=== PATIENT | female | born 2000 | race Caucasian/White ===

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

== ENCOUNTER 2021-02-03 07:07 | Emergency (ER) | payer OTHER ==
[~2021-02-03] VITALS: Ht 165.1 cm; Wt 118.0 kg
[2021-02-03 08:27] LABS: BASO % 1 % (0-3); EOS # 0.2 x10^3/uL (0.0-0.7); EOS % 2 % (0-3); HEMATOCRIT 38.6 % (36.0-47.0); HEMOGLOBIN 13.1 g/dL (12.0-15.5); LYMPH % 28 % (24-48); MEAN CORPUSCULAR HEMOGLOBIN 28 pg (25-35); MEAN CORPUSCULAR HGB CONC 34 g/dL (31-37); MEAN CORPUSCULAR VOLUME 81 fL (79-100); MONO # 0.4 x10^3/uL (0.0-1.1); MONO % 5 % (0-9); NEUT # 4.4 x10^3/uL (1.8-7.7); NEUT % 64 % (31-73); PLATELET COUNT 210 x10^3/uL (140-400); RED BLOOD COUNT 4.77 x10^6/uL (3.50-5.40); RED CELL DISTRIBUTION WIDTH 14.2 % (11.5-14.5); WHITE BLOOD COUNT 6.9 x10^3/uL (4.0-11.0)
[2021-02-03 08:31] LABS: BILIRUBIN,URINE NEGATIVE (NEG); CLARITY,URINE CLEAR; COLOR,URINE YELLOW; NITRITE,URINE NEGATIVE (NEG); PH,URINE 6.5 (<5.0-8.0); PROTEIN,URINE NEGATIVE (NEG-TRACE); UROBILINOGEN,URINE 0.2 mg/dL (0.2 mg/dL)
--- NOTE | 2021-02-03 08:31 | ED.ADGEN ---
Past Medical History Past Medical History: No Pertinent History Past Surgical History: No Surgical History Smoking Status: Never Smoker Alcohol Use: None Drug Use: Marijuana General Adult EDM: Chief Complaint: ABDOMINAL PAIN HPI: HPI: Patient is a 20-year-old previously healthy female who presents to the emergency room complaining of epigastric abdominal pain that radiates to her right side. This started last night and at that time was a dull pain. She is now having dull pain with intermittent sharp pains. The pain is kept her up all night. She has nausea but does not have any vomiting. She has not had any known fevers. She denies any diarrhea or constipation. She is never had pain like this previously. Nothing seems to make it better or worse. She has not tried to eat since the pain started. Review of Systems: Review of Systems: Complete ROS is negative unless otherwise documented in HPI Current Medications: Current Medications Medications (Trade) Dose Ordered Sig/Darleen Start Time Stop Time Status Last Admin Dose Admin Ketorolac Tromethamine (Toradol 30mg Vial) 30 mg 1X ONCE 02/03/21 09:15 02/03/21 09:16 DC Ondansetron HCl (Zofran) 4 mg 1X ONCE 02/03/21 08:45 02/03/21 08:46 DC 02/03/21 08:46 4 MG Allergies: Allergies: Allergies Coded Allergies Type Severity Reaction Last Updated Verified No Known Drug Allergies 07/05/16 No Physical Exam: PE: General: Awake, alert, NAD. Well Nourished, well hydrated. Cooperative HEENT: Atraumatic, EOMI, PERRL, airway patent, moist oral mucosa Neck: Supple, trachea midline Respiratory: CTA bilaterally, normal effort, no wheezing/crackles CV: RRR, no murmur, cap refill <2 GI: Soft, nondistended, right upper quadrant tenderness, no masses MSK: No obvious deformities Skin: Warm, dry, intact Neuro: A&O x3, speech NL, sensory and motor grossly intact, no focal deficits Psych: Normal affect, normal mood, not suicidal or homicidal Current Patient Data: Labs: Laboratory Tests Test 02/03/21 07:21 02/03/21 07:28 02/03/21 08:04 Urine Collection Type Unknown Urine Color Yellow Urine Clarity Clear Urine pH 6.5 (<5.0-8.0) Urine Specific [place] <=1.005 (1.000-1.030) Urine Protein Negative mg/dL (NEG-TRACE) Urine Glucose (UA) Negative mg/dL (NEG) Urine Ketones (Stick) Negative mg/dL (NEG) Urine Blood Negative (NEG) Urine Nitrite Negative (NEG) Urine Bilirubin Negative (NEG) Urine Urobilinogen Dipstick 0.2 mg/dL (0.2 mg/dL) Urine Leukocyte Esterase Trace (NEG) Urine RBC 0 /HPF (0-2) Urine WBC 1-4 /HPF (0-4) Urine Squamous Epithelial Cells Many /LPF Urine Bacteria Many /HPF (0-FEW) POC Urine HCG, Qualitative Hcg negative (Negative) White Blood Count 6.9 x10^3/uL (4.0-11.0) Red Blood Count 4.77 x10^6/uL (3.50-5.40) Hemoglobin 13.1 g/dL (12.0-15.5) Hematocrit 38.6 % (36.0-47.0) Mean Corpuscular Volume 81 fL (79-100) Mean Corpuscular Hemoglobin 28 pg (25-35) Mean Corpuscular Hemoglobin Concent 34 g/dL (31-37) Red Cell Distribution Width 14.2 % (11.5-14.5) Platelet Count 210 x10^3/uL (140-400) Neutrophils (%) (Auto) 64 % (31-73) Lymphocytes (%) (Auto) 28 % (24-48) Monocytes (%) (Auto) 5 % (0-9) Eosinophils (%) (Auto) 2 % (0-3) Basophils (%) (Auto) 1 % (0-3) Neutrophils # (Auto) 4.4 x10^3/uL (1.8-7.7) Lymphocytes # (Auto) 2.0 x10^3/uL (1.0-4.8) Monocytes # (Auto) 0.4 x10^3/uL (0.0-1.1) Eosinophils # (Auto) 0.2 x10^3/uL (0.0-0.7) Basophils # (Auto) 0.0 x10^3/uL (0.0-0.2) Sodium Level 137 mmol/L (136-145) Potassium Level 4.0 mmol/L (3.5-5.1) Chloride Level 103 mmol/L (98-107) Carbon Dioxide Level 25 mmol/L (21-32) Anion Gap 9 (6-14) Blood Urea Nitrogen 9 mg/dL (7-20) Creatinine 0.7 mg/dL (0.6-1.0) Estimated GFR (Cockcroft-Gault) 107.8 BUN/Creatinine Ratio 13 (6-20) Glucose Level 111 mg/dL (70-99) H Calcium Level 8.8 mg/dL (8.5-10.1) Total Bilirubin 0.3 mg/dL (0.2-1.0) Aspartate Amino Transferase (AST) 14 U/L (15-37) L Alanine Aminotransferase (ALT) 24 U/L (14-59) Alkaline Phosphatase 62 U/L (46-116) Total Protein 7.8 g/dL (6.4-8.2) Albumin 3.6 g/dL (3.4-5.0) Albumin/Globulin Ratio 0.9 (1.0-1.7) L Lipase 113 U/L (73-393) Laboratory Tests 02/03/21 08:04 Laboratory Tests 02/03/21 08:04 Vital Signs: Vital Signs Date Time Temp Pulse Resp B/P (MAP) Pulse Ox O2 Delivery O2 Flow Rate FiO2 02/03/21 08:48 92 20 129/59 (82) 98 Room Air 02/03/21 07:58 98.1 98.1 EKG: EKG: [] Heart Score: C/O Chest Pain: N/A Risk Factors: Risk Factors: DM, Current or recent (<one month) smoker, HTN, HLP, family history of CAD, obesity. Risk Scores: Score 0 - 3: 2.5% MACE over next 6 weeks - Discharge Home Score 4 - 6: 20.3% MACE over next 6 weeks - Admit for Clinical Observation Score 7 - 10: 72.7% MACE over next 6 weeks - Early Invasive Strategies Radiology/Procedures: Radiology/Procedures: [] Course & Med Decision Making: Course & Med Decision Making Pertinent Labs and Imaging studies reviewed. (See chart for details) Patient is a 20-year-old female who presents to the emergency room complaining of right upper quadrant abdominal pain with radiation into her back. Patient is overall well-appearing. Vitals are stable. Patient will be given symptomatic treatment. Abdominal lab work was ordered including a CMP, CBC, UA, lipase. Lab work is unremarkable. At this time ultrasound is unavailable due to no noc technician coverage here in our hospital. Unable to get an ultrasound this morning. At this time given patient's normal white blood cell count, liver enzymes, lipase there is more risk than benefit to getting a CT scan at this time. I did discuss with her the signs of acute cholecystitis and when to return to the emergency room. Patient's test results and vitals while in the ED were fully reviewed and discussed with the patient. Patient is stable and at this time does not need admission to the hospital. We have discussed strict return precautions and the importance of following up with their Primary Care Physician. Patient stated understanding and was given an opportunity to ask any questions. Patient is in agreement with plan. Wilfredon Disclaimer: Clem Disclaimer: This electronic medical record was generated, in whole or in part, using a voice recognition dictation system. Departure Departure Impression: Primary Impression: Biliary colic Disposition: 01 DC HOME SELF CARE/HOMELESS Condition: STABLE Referrals: NON,STAFF (PCP) Patient Instructions: Biliary Colic Scripts Ondansetron (ONDANSETRON ODT) 4 Mg Tab.rapdis 1 TAB PO PRN Q6-8HRS, #16 TAB Prov: MAXIMINO FLEMING MD 02/03/21 Hyoscyamine Sulfate (LEVSIN-SL) 0.125 Mg Tab.subl 2-Michele TAB SL PRN Q4HRS PRN for pain for 5 Days, #60 TAB 0 Refills Prov: MAXIMINO FLEMING MD 02/03/21 MAXIMINO FLEMING MD Feb 03, 2021 08:31
[2021-02-03 08:44] LABS: CALCIUM 8.8 mg/dL (8.5-10.1); CREATININE 0.7 mg/dL (0.6-1.0); GFR 107.8
[2021-02-03] MEDS ORDERED: ONDANSETRON PF 4 MG/2 ML VIAL. IVP ONE (08:45)
[2021-02-03 08:49] LABS: ALBUMIN 3.6 g/dL (3.4-5.0); ALBUMIN/GLOBULIN RATIO 0.9 (1.0-1.7); TOTAL BILIRUBIN 0.3 mg/dL (0.2-1.0); TOTAL PROTEIN 7.8 g/dL (6.4-8.2)
[2021-02-03 09:03] LABS: BACTERIA,URINE MANY /HPF (0-FEW); RBC,URINE 0 /HPF (0-2)
[2021-02-03] MEDS ORDERED: KETOROLAC 30 MG/ML VIAL. IVP ONE (09:15)
[2021-02-03] MEDS ORDERED: HYOS0.1265 SL (09:42)
[2021-02-03] MEDS ORDERED: ONDA4TAB12 PO (09:42)
[2021-02-03 09:51] VITALS: BP 131/72
== END 2021-02-03 09:52 | disposition home or self-care (01) ==
LOC: ER 07:07
DX: K80.50 Calculus of bile duct without cholangitis or cholecystitis without obstruction (principal); R10.11 Right upper quadrant pain; R11.0 Nausea; F12.90 Cannabis use, unspecified, uncomplicated
CPT/HCPCS: 36415; 80053; 81001; 81025; 83690; 85025; 96374; 96375; 99285; J1885; J2405

== ENCOUNTER 2021-10-19 15:58 | Emergency (ER) | payer OTHER ==
[~2021-10-19] VITALS: Ht 165.1 cm; Wt 125.0 kg
[~2021-10-19 15:58] MED LIST changes: +HYOS0.1265 SL; +ONDA4TAB12 PO
--- NOTE | 2021-10-19 16:17 | PHYS DOC ---
Past Medical History Past Medical History: No Pertinent History (SAL,RAE Bateman ACCOUNT SUPERVISOR) Past Surgical History: No Surgical History (RAE HUANG ACCOUNT SUPERVISOR) Smoking Status: Never Smoker Alcohol Use: None Drug Use: Marijuana (RAE HUANG ACCOUNT SUPERVISOR) General Adult HPI: HPI: Patient is a 21 year old female who presents with was going down the stairs with her 1-year-old and jumped down a stair and heard a pop in the left knee. She has pain that is throbbing to the left medial dorsal part of the knee. She can put weight on the extremity but it hurts. She states it hurts more extending the knee than it does bending the knee. She does have range of motion of the knee. There is no laxity. She denies any numbness or tingling or swelling. Patient states in the past she had sprained it but has never had surgery on it. Rates her pain 7 out of 10. (RAE HUANG ACCOUNT SUPERVISOR) Review of Systems: Review of Systems: Constitutional: Denies fever or chills. [] Eyes: Denies change in visual acuity. [] HENT: Denies nasal congestion or sore throat. [] Respiratory: Denies cough or shortness of breath. [] Cardiovascular: Denies chest pain or edema. [] GI: Denies abdominal pain, nausea, vomiting, bloody stools or diarrhea. [] : Denies dysuria. [] Musculoskeletal: Denies back pain or +left knee joint pain. [] Integument: Denies rash. [] Neurologic: Denies headache, focal weakness or sensory changes. [] Endocrine: Denies polyuria or polydipsia. [] Lymphatic: Denies swollen glands. [] Psychiatric: Denies depression or anxiety. [] (RAE HUANG ACCOUNT SUPERVISOR) Heart Score: C/O Chest Pain: No (RAE HUANG ACCOUNT SUPERVISOR) Allergies: Allergies: Allergies Coded Allergies Type Severity Reaction Last Updated Verified No Known Drug Allergies 07/05/16 No (RAE HUANG ACCOUNT SUPERVISOR) Physical Exam: PE: Constitutional: Well developed, well nourished, no acute distress, non-toxic appearance. [] HENT: Normocephalic, atraumatic, bilateral external ears normal, oropharynx moist, no oral exudates, nose normal. [] Eyes: PERRLA, EOMI, conjunctiva normal, no discharge. [] Neck: Normal range of motion, no tenderness, supple, no stridor. [] Cardiovascular:Heart rate regular rhythm, no murmur [] Lungs & Thorax: Bilateral breath sounds clear to auscultation [] Abdomen: Bowel sounds normal, soft, no tenderness, no masses, no pulsatile masses. [] Skin: Warm, dry, no erythema, no rash. [] Back: No tenderness, no CVA tenderness. [] Extremities: Left medial dorsal knee tenderness, no cyanosis, no clubbing, ROM intact but painful with extension, no edema. [] Neurologic: Alert and oriented X 3, normal motor function, normal sensory function, no focal deficits noted. [] Psychologic: Affect normal, judgement normal, mood normal. [] (RAE HUANG APRN) EKG: EKG: [] (RAE HUANG APRN) Radiology/Procedures: Radiology/Procedures: [] Impression: [facility] [address] [place], [place] [id number] IMAGING REPORT Signed PATIENT: SELENE PARKS ACCOUNT: [id number] : 2000 LOCATION: ER AGE: 21 SEX: F EXAM STATUS: PRE ER ORD. PHYSICIAN: RAE HUANG APRN REASON: pain after jumping down a stair and heard a pop PROCEDURE: KNEE LEFT 4V EXAM: Left knee 4 views. HISTORY: Pain after injury. COMPARISON: None. FINDINGS: No fractures are identified. Joint spaces and alignment are maintained. There is no joint effusion. IMPRESSION: 1. No fracture or joint effusion. Electronically signed by: Hermes Montalvo MD (10/19/2021 4:51 PM) [facility] DICTATED and SIGNED BY: TAYO MONTALVO MD DATE: 10/19/21 [id number] (RAE HUANG APRN) Course & Med Decision Making: Course & Med Decision Making Pertinent Labs and Imaging studies reviewed. (See chart for details) See HPI. Alert and oriented x4. Ambulatory with a steady gait but limping on the left lower extremity. No redness, deformity or swelling of the left knee. No laxity in the knee. Full sensations intact. Pedal pulse present. Skin pink warm and dry. Refill less than 2 seconds. Patient will be placed in an Jack wrap due to not having a big enough size of knee immobilizer. We are also out of crutches at this time. Patient states she can borrow a friend's crutches that she can use. Patient is placed in Jack wrap. X-ray shows no acute findings. Patient to follow-up with orthopedic or primary care provider. [] (RAE HUANG APRN) Dragon Disclaimer: Dragon Disclaimer: This electronic medical record was generated, in whole or in part, using a voice recognition dictation system. (RAE HUANG APRN) Departure Departure Impression: Primary Impression: Knee sprain Qualified Codes: S83.92XA - Sprain of unspecified site of left knee, initial encounter Disposition: HOME / SELF CARE / HOMELESS Condition: STABLE Referrals: NON,STAFF (PCP) ROWAN RICHMOND DO Patient Instructions: Knee Sprain Additional Instructions: Follow-up with your primary care doctor or the orthopedic I have referred you to in the next week. Use ice and elevation. Ibuprofen to help with pain. If you begin having increased swelling, redness to the joint or numbness and tingling return to the emergency room. Scripts Ibuprofen (IBUPROFEN) 600 Mg Tablet 600 MG PO PRN Q6HRS PRN for INFLAMMATION, #25 TAB Prov: RAE HUANG APRN 10/19/21 Attending Signature Attending Signature I have reviewed the PA/GARDENING SUPERVISOR's note and plan of care. I was available for consultat ion as needed during the patient's visit in the emergency department. I agree with the clinical impression, plan, and disposition. (ALIRIO DOE DO) RAE HUANG APRN Oct 19, 2021 16:17 ALIRIO DOE DO Oct 20, 2021 06:29
[2021-10-19] MEDS ORDERED: HYDROcodone/APAP 5/325MG 1 TAB TABLET PO ONE (16:30)
--- NOTE | 2021-10-19 16:54 | RAD ---
EXAM: Left knee 4 views. HISTORY: Pain after injury. COMPARISON: None. FINDINGS: No fractures are identified. Joint spaces and alignment are maintained. There is no joint e ffusion. IMPRESSION: 1. No fracture or joint effusion. Electronically signed by: Hermes Montalvo MD (10/19/2021 4:51 PM) [facility]
[2021-10-19] MEDS ORDERED: IBUP-1007 PO (16:58)
[2021-10-19 17:22] VITALS: BP 166/72
== END 2021-10-19 17:15 | disposition home or self-care (01) ==
LOC: ER 15:58
DX: S83.92XA Sprain of unspecified site of left knee, initial encounter (principal); X50.9XXA Other and unspecified overexertion or strenuous movements or postures, initial encounter; Y93.89 Activity, other specified; Y92.89 Other specified places as the place of occurrence of the external cause; Y99.8 Other external cause status
CPT/HCPCS: 29505; 73564; 99283; A6450